=== PATIENT | male | born 2000 ===

== ENCOUNTER 2025-10-01 09:01 | Outpatient (CLI) | payer BC | END 2025-10-01 09:02 | disposition home or self-care (01) | LOC: SCSULT 09:01 | PROVIDERS: ATTEND Family Medicine | DX: N50.89 Other specified disorders of the male genital organs (principal); N50.812 Left testicular pain; N44.8 Other noninflammatory disorders of the testis; N50.3 Cyst of epididymis | CPT/HCPCS: 76870; 93976 ==